=== PATIENT | male | born 1960 | race Caucasian/White ===

== ENCOUNTER → 2018-11-14 | Outpatient (CLI) | payer BC, OTHER | LOC: CAT 11:08 | DX: K44.9 Diaphragmatic hernia without obstruction or gangrene (principal); K40.20 Bilateral inguinal hernia, without obstruction or gangrene, not specified as recurrent; N28.1 Cyst of kidney, acquired ==

== ENCOUNTER → 2020-11-05 | Outpatient (CLI) | payer BC, OTHER ==
[~2020-11-05] MED LIST: ASA81BEC PO; FISH OIL 1,0001 EAC9 PO; LIPITOR10 MG PO; SUPER B-50 COM1 EACH PO; VITAMIN D3125 MC2 PO
[2020-11-05 13:20] VITALS: BP 157/97
[2020-11-05 13:51] VITALS: BP 138/80
--- NOTE | 2020-11-05 14:22 | NUR ---
IN FOR THERAPEUTIC PHLEBOTOMY FOR ELEVATED HGB. ADMISSION HISTORY AND ASSESSMENT COMPLETED. MEDICATIONS RECONCILED. PATIENT HAS NO ALLERGIES. THERAPEUTIC PHLEBOTOMY DONE USING BLOOD BAG. REMOVED 1 UNIT BLOOD, 525GM/500ML AFTER CALIBRATING AND ZEROING THE SCALE. PATIENT TOLERATED WELL. DRANK SOME WATER AND OBSERVED FOR 20 MINUTES. POST BP GOOD. GAVE PATIENT POST THERAPEUTIC PHLEBOTOMY INSTRUCTIONS AND COMMUNICATED UNDERSTANDING. DISMISSED IN GOOD CONDITION.
== END ==
LOC: OPONC 11:59
PROVIDERS: ATTEND Family Medicine
DX: R71.8 Other abnormality of red blood cells (principal)
CPT/HCPCS: 95100

== ENCOUNTER 2020-11-11 15:30 | Emergency (ER) | payer BC, OTHER ==
[~2020-11-11] VITALS: Ht 180.3 cm; Wt 86.2 kg
[2020-11-11 15:31] VITALS: BP 154/95
== END 2020-11-11 17:30 | disposition left against medical advice (07) ==
LOC: ER 15:30
DX: M79.602 Pain in left arm (principal); Z53.21 Procedure and treatment not carried out due to patient leaving prior to being seen by health care provider